=== PATIENT | female | born 1995 | race Caucasian/White ===

== ENCOUNTER 2019-06-17 18:19 | Inpatient (IN) ==
[2019-06-17] MEDS ORDERED: REGLAN PO ONE (19:05)
[2019-06-17] MEDS ORDERED: AMBIEN PO PRN (19:05)
[2019-06-17] MEDS ORDERED: PEPCID PO ONE (19:05)
[2019-06-17] MEDS ORDERED: PEPCID IV PRN (19:05)
[2019-06-17] MEDS ORDERED: STADOL IV PRN ×3 (19:05)
[2019-06-17] MEDS ORDERED: TYLENOL PO PRN (19:05)
[2019-06-17] MEDS ORDERED: BRETHINE SUBQ PRN (19:05)
[2019-06-17] MEDS ORDERED: KEFZOL 1 GM/D5W 1 GM/50 ML IVPB IV PRN (19:05)
[2019-06-17] MEDS ORDERED: PEPCID PO PRN (19:05)
[2019-06-17] MEDS ORDERED: PITOCIN 30 UNITS/NS 30 UNIT/500 ML IV.SOLN IV SCH (19:15)
[2019-06-17 19:20] LABS: URINE SOURCE VOIDED
[2019-06-17 19:27] LABS: BILIRUBIN URINE NEGATIVE (NEGATIVE); BLOOD URINE NEGATIVE (NEGATIVE); COLOR YELLOW; GLUCOSE URINE NEGATIVE (NEGATIVE); KETONE URINE NEGATIVE (NEGATIVE); LEUKOCYTES URINE NEGATIVE (NEGATIVE); NITRITE URINE NEGATIVE (NEGATIVE); PH URINE 6.5; PROTEIN URINE NEGATIVE (NEGATIVE); TURBIDITY URINE CLEAR (CLEAR); UROBILINOGEN URINE NORMAL (NORMAL)
[2019-06-17 19:33] LABS: UR AMPHETAMINES QUAL NONE DETECTED (NONE DETECT); UR BARBITUATES QUAL NONE DETECTED (NONE DETECT); UR BENZODIAZEPIN QUAL NONE DETECTED (NONE DETECT); UR CANNABINOIDS QUAL NONE DETECTED (NONE DETECT); UR COCAINE QUAL NONE DETECTED (NONE DETECT); UR METHADONE QUAL NONE DETECTED (NONE DETECT); UR OPIATES QUAL NONE DETECTED (NONE DETECT); UR OXYCODONE QUAL NONE DETECTED (NONE DETECT); UR PCP QUAL NONE DETECTED (NONE DETECT)
[2019-06-17] MEDS ORDERED: CYTOTEC PO ONE (20:00)
[2019-06-17 20:04] LABS: BASO# 0.01 X1000 (0.0-0.2); BASO% 0.1 % (0.0-0.8); EOS# 0.12 X1000 (0.0-0.7); EOS% 1.2 % (0.0-10.0); HEMATOCRIT 39.1 % (37.0-47.0); HEMOGLOBIN 13.3 g/dL (12.0-16.0); IMM GRAN# 0.04 X1000 (0.0-0.04); IMM GRAN% 0.4 % (0.0-0.5); LYMPH# 2.29 X1000 (1.2-3.4); LYMPH% 23.3 % (20.5-51.1); MCH 33.8 PG (27-31); MCV 99.2 FL (81-99); MONO# 0.65 X1000 (0.11-0.59); MONO% 6.6 % (1.7-9.3); MPV 9.7 FL (7.4-10.4); NEUT# 6.73 X1000 (1.4-6.5); NEUT% 68.4 % (42.2-75.2); PLT 205 X1000 (130-400); RBC 3.94 XMIL (4.2-5.4); RDW 12.9 % (11.5-14.5); WBC 9.84 X1000 (4.8-10.8)
[2019-06-18] MEDS: CYTOTEC PO SCH ×2 (01:00→05:00)
--- NOTE | 2019-06-18 07:01 | HISTORY AND PHYSICAL ---
HISTORY OF PRESENT ILLNESS: The patient is a 23-year-old white female, G1, P0 at 40 and 4/7 weeks gestation. Her due date is 06/13/2019 by 2nd trimester ultrasound. care has been unremarkable to date and patient will be placed for cervical ripening and labor induction. Her group B strep culture was negative. PAST MEDICAL HISTORY: Significant for asthma, depression as well as anemia. PAST SURGICAL HISTORY: She has had dental surgery and tonsils and adenoids removed. PAST OBSTETRICAL HISTORY: History G1, P0. GYNECOLOGICAL HISTORY: Menarche at age 14. REVIEW OF SYSTEMS: All systems reviewed and noncontributory. FAMILY HISTORY: Significant for diabetes mellitus as well as cervical cancer. MEDICATIONS: vitamins, iron, and albuterol. ALLERGIES: To sulfa and citric. SOCIAL HISTORY: Tobacco use none. Alcohol use none. PHYSICAL EXAMINATION: VITAL SIGNS: Height 5 feet 5 inches, weight 195 pounds, temperature 98.5 degrees, blood pressure 118/77, pulse of 92, respirations 20. heart rate in the 120s. HEENT: Pupils equal, round, reactive to light and accommodation. Extraocular movements intact. Oropharynx clear. NECK: Supple. No thyromegaly. LUNGS: Clear to auscultation. HEART: Regular rate and rhythm. ABDOMEN: Gravid, nontender. PELVIC: Cervix was closed, 50%, -2 station. Vertex presentation was documented using ultrasound. EXTREMITIES: Mild lower extremity edema. DTRs 2+ bilaterally. ASSESSMENT AND PLAN: A 23-year-old white female, G1, P0 at 40 and 4/7 weeks, to be placed in the hospital for cervical ripening and induction of labor. As mentioned previously, group B strep culture was negative. cc: Serafin Sarkar III, MD
[2019-06-18] MEDS: LR 1,000 ML IV ONE ×2 (10:00→17:05)
[2019-06-18] MEDS: ZOFRAN IV PRN (13:40)
[2019-06-18] MEDS ORDERED: FENTANYL-BUPIV-NS 500 MCG-0.125% 250 ML EPIDURAL SCH (17:15)
[2019-06-18] MEDS ORDERED: MARCAINE 0.25% PF INJ ONE (17:30)
[2019-06-18] MEDS ORDERED: LR 1,000 ML ONE (18:52)
[2019-06-18] MEDS ORDERED: LR 1,000 ML IV SCH (19:15)
[2019-06-18] MEDS ORDERED: PITOCIN 20 UNITS/NS 20 UNITS/1,000 ML IV.SOLN ONE (21:19)
[2019-06-18] MEDS ORDERED: ATARAX PO PRN (21:21)
[2019-06-18] MEDS ORDERED: MINERAL OIL PO PRN (21:21)
[2019-06-18] MEDS ORDERED: PERI MEDS (DERMOPLAST/NUPERCAINAL/TUCKS) MISC PRN (21:21)
[2019-06-18] MEDS ORDERED: HYDROXYZINE IM PRN (21:21)
[2019-06-18] MEDS ORDERED: CYTOTEC PO PRN (21:21)
[2019-06-18] MEDS ORDERED: BENADRYL IV PRN (21:21)
[2019-06-18] MEDS ORDERED: BOOSTRIX VACCINE IM ONE (21:21)
[2019-06-18] MEDS ORDERED: M-M-R II VACCINE SUBQ ONE (21:21)
[2019-06-18] MEDS ORDERED: AMBIEN PO PRN (21:21)
[2019-06-18] MEDS ORDERED: BENADRYL PO PRN (21:21)
[2019-06-18] MEDS ORDERED: XYLOCAINE-MPF 1% INJ PRN (21:21)
[2019-06-18] MEDS ORDERED: PITOCIN IM PRN (21:21)
[2019-06-18] MEDS ORDERED: NORCO-10 PO PRN (21:21)
[2019-06-18] MEDS ORDERED: PITOCIN 30 UNITS/NS 30 UNIT/500 ML IV.SOLN IV SCH (21:30)
[2019-06-18] MEDS ORDERED: PITOCIN 20 UNITS/NS 20 UNITS/1,000 ML IV.SOLN IV SCH (21:30)
[2019-06-19] MEDS: ZOFRAN IV PRN (02:18)
[2019-06-19] MEDS: MOTRIN PO PRN ×2 (04:18→16:11)
[2019-06-19 07:18] LABS: BASO# 0.01 X1000 (0.0-0.2); BASO% 0.1 % (0.0-0.8); EOS# 0.04 X1000 (0.0-0.7); EOS% 0.3 % (0.0-10.0); HEMATOCRIT 34.4 % (37.0-47.0); HEMOGLOBIN 11.4 g/dL (12.0-16.0); IMM GRAN# 0.06 X1000 (0.0-0.04); IMM GRAN% 0.4 % (0.0-0.5); LYMPH% 11.5 % (20.5-51.1); MCH 33.7 PG (27-31); MCHC 33.1 g/dL (33-37); MCV 101.8 FL (81-99); MONO# 1.38 X1000 (0.11-0.59); MONO% 9.4 % (1.7-9.3); MPV 9.9 FL (7.4-10.4); NEUT# 11.55 X1000 (1.4-6.5); NEUT% 78.3 % (42.2-75.2); PLT 169 X1000 (130-400); RBC 3.38 XMIL (4.2-5.4); RDW 12.7 % (11.5-14.5); WBC 14.74 X1000 (4.8-10.8)
--- NOTE | 2019-06-19 08:55 | OPERATIVE NOTE ---
PROCEDURE DATE: 06/18/2019 DELIVERY NOTE: The patient progressed to complete and pushing, had spontaneous vaginal delivery of a female , 7 pounds 2 ounces with of 9 and 9 at 20:44 on 06/18/2019 over a first- degree midline episiotomy. Nuchal cord x1 was reduced easily over the perineum. Cord blood sample was obtained at this time. Placenta was difficult to remove and did not release easily and needed to be manually extracted due to adherence. First degree midline episiotomy repaired with 3-0 chromic. ESTIMATED BLOOD LOSS: 200 mL. ANESTHESIA: Epidural. COUNTS: All counts were correct x 2. cc: MD YADIRA Huang III
[2019-06-19] MEDS: NORCO-5 PO PRN (16:11)
[2019-06-19] MEDS ORDERED: PERICOLACE PO SCH (21:00)
[2019-06-20] MEDS: NORCO-5 PO PRN (06:43)
[2019-06-20] MEDS: MOTRIN PO PRN (06:43)
[2019-06-20 09:21] VITALS: BP 121/69
--- NOTE | 2019-06-20 09:43 | PROVIDER PROGRESS NOTE ---
Progress Note Discharge Summary Discharge Diagnosis: 1. Post Dates Gestation @ 40 4/7 weeks 2. IOL 2. 3. Mild Anemia 4. RH+ Anita is a 23 yo CF, now , who presented to the L&D unit for an Induction of Labor on May 18, 2019 @ 40 4/7 weeks gestation. She received cytotec for cervical softening followed by IV Pitocin for the induction. Her cervical change was slow during the early stage of her labor, but during active labor, she began to move rapidly to 10cm and . Dr. Sarkar was contacted who presented for delivery. On 06/18/2019, she underwent a of a viable female weighing 7#2oz with 9/9 APGARS and is doing well. Her (PP) stay was unremarkable. She began to ambulate without assistance. She tolerates a regular diet. Her flow of lochia is light. She breast feeding. Her laboratory values are as follows: 11.4/34.4<169K, RPR-NR, UDS-Neg, RH+. On PP day #2, she was examined and noted to be stable for discharge. Her PE finding were as follows: Heart-RRRsM, Lungs-CTA B/L, ABD-soft, firm fundus, NT; Extrem-no C/C/E. She was discharged to home in stable condition. The following medications were called-in to the [facility] pharmacy in [place] ([phone]): Motrin 800 mg#30, 1 po q8hrs PRN Pain, no RF; Tylenol#3(#20), 1 po q4-6 hrs PRN pain, no RF;Colace 100mg(#30), 1 po @hs to soften stool,no RF; FeoSol 325 mg(#30), 1 po qday, no RF. Anita was discharged to home in stable condition with instructions. She is to f/u with Dr. Sarkar in the office in 6 weeks for a post- examination.
== END 2019-06-20 18:40 | disposition home or self-care (01) | DRG 807 ==
LOC: LD 18:19
PROVIDERS: ADMIT Obstetrics & Gynecology; ATTEND Obstetrics & Gynecology